=== PATIENT | female | born 1990 | race Caucasian/White ===

== ENCOUNTER → 2017-01-13 | Outpatient (CLI) | payer BC ==
[~2017-01-13] MED LIST: DOCU1CAP60 PO; FRRS300 PO; PRENTAB26 PO
[2017-01-13 13:30] LABS: HEMATOCRIT 39.9 % (37-47); MEAN CELL VOLUME 95.9 fL (80-100); MEAN CORPUSCULAR HGB CONC 32.3 g/dl (32-36); MEAN PLATELET VOLUME 10.1 fL (7.4-10.4); PLATELET COUNT 278 K/uL (130-400); RED BLOOD COUNT 4.16 M/uL (4.2-5.4); WHITE BLOOD COUNT 6.79 K/uL (4.8-10.8)
== END | disposition home or self-care (01) ==
LOC: C.LABBC 09:43
PROVIDERS: ATTEND Family Medicine
DX: D50.9 Iron deficiency anemia, unspecified (principal); E66.9 Obesity, unspecified

== ENCOUNTER → 2017-02-07 | Outpatient (CLI) | payer BC ==
--- NOTE | 2017-02-09 08:17 | PAP/PSG TECHNICIAN REPORT ---
[facility] Sales Service Coordinator Polysomnogram Report Study name: None Report date: 02/08/2017 Study date: 02/07/2017 Referring Physician: Yoel Naranjo Name: JOELLE CHAVEZ Interpreting Physician: Gage Collier M.D. Date of : 1990 Sales Service Coordinator: MAURA MckinnonT. Sex: Female Age: 26 StudyType: PSG Weight: 182 lbs Height: 26 years, Height 5' 3.5" BMI: 31.73 Medications: Bupropion 200 mg, Vyvanse 20 mg, Alprazolam 0.5 mg, Mirena 52 mg, Zolpidem 5 mg, Pramipexole 0.25 mg, Multi-Vit, Ibp 200 mg, Denisse, Benadryl 50 mg. Patient History 26 yr. old female presents to the sleep lab for a diagnostic sleep study. Pt. states that she snores, has had a weight gain, chronic fatigue, and insomnia. also states that she has fibromyalgia, and depression. Parameters Monitored NPSG: E1-M2, E2-M1, Fp1-M2, Fp2-M1, F3-M2, F4-M2, F4-M1, C3-M2, C4-M2, C4-M1, O1-M2, O2-M2, O2-M1, T3-M2, T4-M1, P3-M2, P4-M1, CHIN1, CHIN2, HR, EKG, Legs, PFLOW, SNOR, FLOW, CFLOW, Tidal Volume, THOR, ABDO, SpO2, PLTH, CPRESS, ETCO2 Wave, ETCO2, pH Sleep Architecture Sleep Stages Time at Lights Off 11:02:46 PM STAGES Time (min.) TST (%) Time at Lights On 5:36:16 AM Wake 52.5 -- Total Recording Time (TRT) 394.50 min. N1 8.0 2 Total Sleep Period (TSP) 353.5 min. N2 247.0 72 Total Sleep Time (TST) 341.0min. N3 31.5 9 Awake Time 52.5 min. REM 54.5 16 Wake after Sleep Onset 12.5 min. Sleep Efficiency (SE) 87 % Sleep Onset Latency (RAHEEL) 40.0 min. Number of Stage 1 Shifts None Awakenings 7 Stage Changes 28 Number of REM periods 2 REM 54.5 16 REM Latency 166.0 min. NREM 286.5 84 Body Position Analysis Supine Right Left Side Prone Vertical Total Sleep Time (min.) 200.9 142.0 39.4 181.40 0.0 0.0 Total Sleep Time (%) 47% 42% 12% 53 0% N/A% Total Sleep Time REM (min.) 32.6 14.5 7.4 None 0.0 0.0 Total Sleep Time NREM (min.) 127.0 127.5 32.0 None 0.0 0.0 Intermittent Wake (min.) 41.3 6.3 4.9 None 0.0 0.0 Total Sleep Period (%) 47% None None None None None Arousals Myoclonus (PLM) * Events Count Index Events Count Index Spontaneous 86 15 Events Awake (PLMW) 1 1.1 Respiratory 1 0.2 Events Asleep w/ Arousal (PLMA) 0 0.0 PLM 0 0 Events Asleep w/o Arousal (PLMS) 18 3.2 Snoring 16 3 Total Asleep 18 3.2 Total 103 18 Total 19 3 Respiratory Analysis * CA OA MA CH H RERA Total Count 0 0 0 0 5 0 5 Index 0.0 0.0 0.0 0 0.9 0 0.9 Mean Duration 0.0 0.0 0.0 0.00 17.4 0.0 17.4 Longest Duration 0.0 0.0 0.0 0.00 0.0 0.0 27.4 Respiratory Event Summary Total Supine ~Supine Right Left Prone REM NREM Apneas Count 0 0 0 0 0 N/A 0 0 Index 0.0 0 0 0.0 0.0 N/A 0 0 Hypopneas (4% Desat) Count 5 3 2 2 0 N/A 2 3 Index 0.9 1.1 1 0.8 0.0 N/A 2.2 0.6 Apneas & All Hypopneas Count 5 3 2 2 0 N/A 2 3 Index 0.9 1 1 1 0 N/A 2.2 0.6 Respiratory Events (Retail Office Manager+All Hyp+RERA) Count 5 3 2 2 0 N/A 2 3 Index 0.9 1 1 0.8 0.0 N/A 2.2 0.6 Respiratory Related Arousal Count 1 3 1 1 0 N/A 0 1 Index 0.2 0 0 0 0 N/A 0 0 Snoring Analysis Supine Right Left Prone REM NREM Total Snore duration 29.5 min Snores count 773 776 205 N/A 115 1,639 1,754 Snore mean duration 1.0 Sec Snores index 291 328 312 N/A 126.6 343.2 308.6 TST with snoring (%) 8.6% Desaturation Event Summary: Minimum %SpO2 Event Count Mean/Min/Max Duration(sec.) Desaturation Index % Time In Bed > 90 25 26.3 / 5.0 / 54.8 3.8 100.0 86 - 90 0 N/A 0.0 0.0 81 - 85 0 N/A 0.0 0.0 76 - 80 0 N/A 0.0 0.0 71 - 75 0 N/A 0.0 0.0 66 - 70 0 N/A 0.0 0.0 61 - 65 0 N/A 0.0 0.0 56 - 60 0 N/A 0.0 0.0 51 - 55 0 N/A 0.0 0.0 < 50 0 N/A 0.0 0.0 Total REM NREM Awake <50% 0.0 min. 0.0 min. 0.0 min. 0.0 min. 51 - 60% 0.0 min. 0.0 min. 0.0 min. 0.0 min. 61 - 70% 0.0 min. 0.0 min. 0.0 min. 0.0 min. 71 - 80% 0.0 min. 0.0 min. 0.0 min. 0.0 min. 81 - 90% 0.2 min. 0.0 min. 0.0 min. 0.2 min. 91 - 100% 390.6 min. 54.4 min. 286.5 min. 49.7 min. Average 96 95 95 97 Minimum SpO2 89 91 91 89 Desaturation Event Index 3.8 5.5 4.2 0.0 # Desat. Events below 89% N/A N/A N/A N/A Time(%) with Saturation below 89% 0.0 0.0 0.0 0.0 Time(min.) with Saturation below 89% 0.0 0.0 0.0 0.0 Time (mins) REM (mins) NREM (mins) % of TST SpO2 Below 90% N/A N/A NN/A 0.0 SpO2 Below 88% 0 0 0 0 Heart Rate Analysis Min (bpm) Max (bpm) Average (bpm) Awake 69 116 96 NREM 67 112 90 REM 69 104 84 Overall 67 112 89 Supplemental O2 Values Minimum O2 level: None Value Start Time End Time Sales Service Coordinator Comments PSG Study slept in the right, left, supine positions. No cardiac arrhythmia or PLM's noted. No bruxism noted. Snoring was noted and scored as a 3 on a scale of 1 through 5. (0=no snoring, 5=snoring loud enough to be heard through a closed door or down the [address]) Ms. Chavez awoke to use the restroom 0 times during the night. stated, I did not sleep as well as I do when I am in my own bed. The final report will be interpreted and signed by a sleep physician. The completed physician report will then be placed in the patient medical record. Patient did snore on a scale of 3, nothing significant was seen throughout study. Therapy (cm H2O) 0 TIB (min.) 393.5 TST (min.) 341.0 Sleep Onset (min.) 40.0 REM Onset From Sleep (min.) 166.0 Sleep Efficiency % 87 Wakefulness (%) 13 Wakefulness (min.) 52.5 NREM 1 (%) 2 NREM 1 (min.) 8.0 NREM 2 (%) 72 NREM 2 (min.) 247.0 NREM 3 (%) 9 NREM 3 (min.) 31.5 REM (%) 16 REM (min.) 54.5 # Arousals 103 Arousal Index 18 # Snore 1,754 Snore Index 308.6 AHI 0.9 AHI Supine 1 AHI Non-Supine 1 NREM AHI 0.6 REM AHI 2.2 RDI 0.9 # Obstructive Apnea 0 # Central Apnea 0 # Mixed Apnea 0 # Hypopneas 5 RERAs 0 Total Respiratory Events 5 Time Below SpO2 89% (min.) 0.0 Mean NREM SpO2 (%) 95 Mean REM SpO2 (%) 95 Mean Sleep SpO2 (%) 95 Min NREM SpO2 (%) 91 Min REM SpO2 (%) 91 Position Supine (min.) 200.9 Position Non-supine (min.) 181.4 LM Index Sleep 3.2 LM Index NREM 3.8 LM Index REM 0.0 Mean Heart Rate (bpm) 89 Min Heart Rate (bpm) 67
--- NOTE | 2017-02-10 14:56 | POLYSOMNOGRAPH REPORT ---
CLINICAL DATA: 26-year-old female with BMI of 31.[address] Naranjo for a sleep study. She has snoring, nocturnal awakening, chronic fatigue, insomnia, fibromyalgia, and depression. SLEEP ARCHITECTURE: Total sleep period was 353.5 minutes. Total sleep time was 341 minutes divided between 286.5 minutes of non-REM sleep and 54.5 minutes of REM sleep. Sleep onset latency was delayed at 40 minutes. REM latency was delayed at 166 minutes. Sleep efficiency was 87%. Wake after sleep onset was 12.5 minutes. Sleep consisted of stage N1 2%, stage N2 72%, stage N3 9%, and REM 16%. AROUSAL DATA: 103 arousals were recorded for an index of 18 per hour. 86 were spontaneous. PLM DATA: No significant PLMD was seen. There were 18 myoclonic jerks recorded for an index of 3.2 per hour with arousal index of 0. RESPIRATORY DATA: There was no evidence of clinically significant sleep apnea/hypopnea. The AHI was 0.9. There were 5 hypopneic episodes with the mean duration of 17.4 seconds. OXIMETRY DATA: No hypoxemia was seen. Oxygen oscar was 91%. Mean saturation was 96%. EKG: Heart rates ranged from 67 to 112 beats per minute. No arrhythmias were noted. BOW REPAIRER CUSTOM'S COMMENTS: The patient slept in the right, left, and supine positions. Snoring was moderate rated 3 on a scale of 1-5. IMPRESSION: No evidence of clinically significant sleep apnea/hypopnea, nocturnal hypoxemia or abnormal limb movements during sleep to explain this patient's symptoms. RECOMMENDATIONS: The patient should continue to practice good sleep hygiene. Treatment for insomnia may be of benefit. Clinical correlation is needed. PRISCILLA
== END | disposition home or self-care (01) ==
LOC: C.NEUR 21:00
PROVIDERS: ATTEND Family Medicine
DX: G47.00 Insomnia, unspecified (principal); R53.82 Chronic fatigue, unspecified